=== PATIENT | male | born 1995 | race Caucasian/White ===

== ENCOUNTER 2018-07-21 10:35 | Emergency (ER) | payer MEDICAID ==
[~2018-07-21] VITALS: Ht 170.2 cm; Wt 63.6 kg
[~2018-07-21 10:35] MED LIST: NOCURR
[2018-07-21] MEDS ORDERED: PERTUSS(ACELL),DIPH,TET VAC/PF 0.5 ML VIAL IM ONE (11:45)
[2018-07-21] MEDS ORDERED: BUPIVACAINE HCL/PF 0.25% 10 ML VIAL INJ ONE (11:45)
[2018-07-21] MEDS ORDERED: BACITRACIN 0.9 GM PACKET OINTMENT TP ONE (11:45)
[2018-07-21 12:50] VITALS: BP 110/61
== END 2018-07-21 13:14 | disposition home or self-care (01) ==
LOC: EMS 10:36
DX: S51.011A Laceration without foreign body of right elbow, initial encounter (principal); S63.501A Unspecified sprain of right wrist, initial encounter; F12.90 Cannabis use, unspecified, uncomplicated; W19.XXXA Unspecified fall, initial encounter; Y93.39 Activity, other involving climbing, rappelling and jumping off; Y92.89 Other specified places as the place of occurrence of the external cause; Y99.8 Other external cause status
CPT/HCPCS: 12001; 73080; 73110; 90471; 90715; 99283; J3490

== ENCOUNTER 2019-09-01 10:28 | Emergency (ER) | payer MEDICAID ==
[~2019-09-01] VITALS: Ht 170.2 cm; Wt 68.2 kg
[2019-09-01 10:29] VITALS: BP 116/53
[2019-09-01] MEDS ORDERED: POVIDONE-IODINE 10% 15 ML SOLUTION UD TP ONE (10:45)
[2019-09-01] MEDS ORDERED: ACETAMINOPHEN 325 MG TABLET PO ONE (10:45)
[2019-09-01] MEDS ORDERED: BACITRACIN 0.9 GM PACKET OINTMENT TP ONE (10:45)
[2019-09-01] MEDS ORDERED: LIDOCAINE 1% 10 ML VIAL INJ ONE (10:45)
== END 2019-09-01 12:04 | disposition home or self-care (01) ==
LOC: EMS 10:31
DX: S61.011A Laceration without foreign body of right thumb without damage to nail, initial encounter (principal); W45.8XXA Other foreign body or object entering through skin, initial encounter; Y93.89 Activity, other specified; Y92.89 Other specified places as the place of occurrence of the external cause; Y99.8 Other external cause status
CPT/HCPCS: 12001; 99283; J3490

== ENCOUNTER 2019-09-02 21:21 | Emergency (ER) | payer MEDICAID ==
[~2019-09-02] VITALS: Ht 170.2 cm; Wt 68.2 kg
[2019-09-02 21:40] VITALS: BP 108/61
== END 2019-09-02 21:49 | disposition left against medical advice (07) ==
LOC: EMS 21:21
DX: Z48.01 Encounter for change or removal of surgical wound dressing (principal); Z53.21 Procedure and treatment not carried out due to patient leaving prior to being seen by health care provider

== ENCOUNTER 2020-11-29 02:05 | Emergency (ER) | payer SELFPAY ==
[~2020-11-29] VITALS: Ht 170.2 cm; Wt 68.2 kg
[2020-11-29] MEDS ORDERED: IBUPROFEN 800 MG TABLET PO ONE (03:00)
[2020-11-29] MEDS ORDERED: AMOX TR/POT CLAV 875 MG/125 MG TABLET PO ONE (03:00)
[2020-11-29 03:53] VITALS: BP 102/52
== END 2020-11-29 03:53 | disposition home or self-care (01) ==
LOC: EMS 02:08
DX: S61.451A Open bite of right hand, initial encounter (principal); W54.0XXA Bitten by dog, initial encounter; Y93.89 Activity, other specified; Y92.89 Other specified places as the place of occurrence of the external cause; Y99.8 Other external cause status
CPT/HCPCS: 99283

== ENCOUNTER 2023-10-05 21:42 | Emergency (ER) | payer MEDICAID ==
[~2023-10-05] VITALS: Ht 170.2 cm; Wt 72.7 kg
[2023-10-05 21:46] VITALS: TEMP 98.1
[2023-10-05 22:17] LABS: COVID AG,FIA SOURCE NASAL SWAB
[2023-10-05] MEDS: PANTOPRAZOLE SODIUM 40 MG/VIAL IVP ONE (22:21)
[2023-10-05] MEDS: METOCLOPRAMIDE HCL 5 MG/ML 2 ML VIAL IVP ONE (22:21)
[2023-10-05 22:29] LABS: ANION GAP 6 mmol/L (8-16); CALCIUM, TOTAL 9.6 mg/dL (8.8-10.5); CARBON DIOXIDE 28 mmol/L (22-29); CHLORIDE 97 mmol/L (98-107); CREATININE 1.13 mg/dL (0.60-1.30); EOSINOPHILS % (AUTO) 0 % (1.0-6.0); GLOMERULAR FILTR. RATE CALC > 60 mL/min (>60); GLUCOSE,RANDOM 105 mg/dL (70-110); LIPASE 37 U/L (16-77); MEAN CORPUSCULAR VOLUME 93 fL (80-100); MONOCYTES # (AUTO) 0.7 K/uL (0.1-1.0); POTASSIUM 4.3 mmol/L (3.5-5.1); SODIUM SERUM 131 mmol/L (136-145); UREA NITROGEN, BLOOD 16 mg/dL (7-18)
[2023-10-05] MEDS: SODIUM CHLORIDE 0.9% 1,000 ML IV ONE (22:33)
[2023-10-05 22:34] LABS: BASOPHILS % (AUTO) 0.4 % (0.0-2.0); HEMATOCRIT 50.3 % (41-53); HEMOGLOBIN 16.7 g/dL (13.5-17.5); LYMPHOCYTES # (AUTO) 0.9 K/uL (1.0-4.8); LYMPHOCYTES % (AUTO) 13.8 % (22.0-44.0); MEAN CORPUSCULAR HEMOGLOBIN 30.9 pg (26.0-34.0); MEAN CORPUSCULAR HGB CONC 33.3 G/dL (31.0-37.0); MONOCYTES % (AUTO) 11.1 % (2.0-9.0); NEUTROPHILS # (AUTO) 4.9 K/uL (1.8-7.7); NEUTROPHILS % (AUTO) 74.7 % (40.0-70.0); RED CELL DISTRIBUTION WIDTH 13.9 % (11.5-14.5); WHITE BLOOD COUNT (AUTO) 6.6 K/uL (4.5-11.0)
[2023-10-05 22:38] LABS: SARS-COV2 (COVID) ANTIGEN,FIA Negative (Negative)
[2023-10-05 23:14] LABS: PLATELET COUNT (AUTO) 93 K/uL (150-450)
[2023-10-06 00:14] VITALS: BP 137/76; PULSE 82; RESP 20
[2023-10-06] MEDS ORDERED: PANT-31 PO (00:34)
[2023-10-06 01:06] LABS: APPEARANCE,URINE CLEAR (CLEAR); BILIRUBIN,URINE NEGATIVE (NEGATIVE); COLOR,URINE LIGHT YELLOW (YELLOW); GLUCOSE, URINE (UA) NEGATIVE (NEGATIVE); KETONES,URINE TRACE mg/dL (NEGATIVE); LEUKOCYTE ESTERASE ,URINE NEGATIVE (NEGATIVE); NITRATE,URINE NEGATIVE (NEGATIVE); OCCULT BLOOD,URINE NEGATIVE (NEGATIVE); PH,URINE 6.5 (5.0-8.0); PROTEIN,URINE TRACE mg/dL (NEGATIVE); SPECIFIC GRAVITIY, URINE 1.022 (1.003-1.030); UROBILINOGEN,URINE <=1.0 mg/dL (<=1.0)
== END 2023-10-06 00:50 | disposition home or self-care (01) ==
LOC: EMS 21:42
DX: K52.89 Other specified noninfective gastroenteritis and colitis (principal); Z98.890 Other specified postprocedural states; Z20.822 Contact with and (suspected) exposure to COVID-19
CPT/HCPCS: 99285; 96374; 76705; 96361; 96375; 87426; 80048; 81003; 83690; 85025; 36415; J2765; C9113; J7030